=== PATIENT | male | born 1945 | race Two or more races ===

== ENCOUNTER 2016-11-26 13:01 | Emergency (ER) | payer OTHER ==
[~2016-11-26] VITALS: Ht 175.3 cm; Wt 68.0 kg
[2016-11-26] MEDS ORDERED: SODIUM CHLORIDE 0.9% 1,000 ML IVB ONE (13:25)
[2016-11-26 14:14] LABS: Basophils # (auto) 0 uL; Basophils % (auto) 0.3 % (0.0-2.0); Eosinophils # (auto) 0 uL; Hematocrit 35.9 % (41.0-53.0); Hemoglobin 11.7 g/dL (13.5-17.5); Lymphocytes # (auto) 0.4 uL; Lymphocytes % (auto) 10.8 % (10.0-50.0); Mean Corpuscular Hemoglobin 28.1 pg (28.0-32.0); Mean Corpuscular Hgb Conc. 32.6 g/dL (32.0-36.0); Mean Corpuscular Volume 86.4 fL (80.0-100.0); Mean Platelet Volume 9.3 fL (7.4-10.4); Monocytes # (auto) 0.4 uL; Monocytes % (auto) 9.8 % (0.0-12.0); Neutrophils # (auto) 3.1 uL; Neutrophils % (auto) 79.1 % (37.0-80.0); Platelet Count (auto) 137 10^3/uL (140-450); Red Cell Distribution Width 14.3 % (11.6-16.0); White Blood Cell 3.9 10^3/uL (4.4-10.8)
[2016-11-26 15:03] LABS: Alkaline Phosphatase 63 U/L (45-117); Anion Gap 9 (5-15); Aspartate Aminotransferase 33 U/L (15-37); BUN/Creatinine Ratio 12.5; Bilirubin, Total 0.5 mg/dL (0.2-1.0); Blood Urea Nitrogen 15 mg/dL (7-18); Calcium 8.3 mg/dL (8.5-10.1); Carbon Dioxide 24 mmol/L (21-32); Chloride 105 mmol/L (98-107); GFR African American 77 mL/min; GFR Non-African American 64 mL/min; Glucose 103 mg/dL (74-106); Potassium 4.2 mmol/L (3.5-5.1); Sodium 138 mmol/L (136-145); Total Protein 6.7 g/dL (6.4-8.2)
[2016-11-26 15:04] LABS: Albumin 3.3 g/dL (3.4-5.0); Magnesium 2.4 mg/dL (1.6-2.6)
[2016-11-26] MEDS ORDERED: IOHEXOL 350 MG/ML 100ML IJ ONE (15:28)
[2016-11-26 19:50] VITALS: BP 99/58
== END 2016-11-26 20:15 | disposition short-term general hospital (02) ==
LOC: ER 13:01
DX: R55 Syncope and collapse (principal); I10 Essential (primary) hypertension; Z95.1 Presence of aortocoronary bypass graft
CPT/HCPCS: 36415; 70450; 71010; 74177; 80053; 83735; 84484; 85025; 93005; 94761; 96360; 99285; J7030; Q9967